=== PATIENT | male | born 1995 | race Caucasian/White ===

== ENCOUNTER 2023-02-21 20:17 | Emergency (ER) | payer OTHER, SELFPAY ==
[2023-02-21 20:23] VITALS: BP 138/81; PULSE 92; RESP 18; TEMP 36.6; O2SAT 100; BMI 24.3
[2023-02-21] MEDS: TET,DIPH,PERTUSS(ACELL),VAC/PF 0.5 ML SYRINGE IM (20:28)
--- NOTE | 2023-02-21 20:30 | ED_ITS ---
HPI - Wound/Laceration General Chief Complaint: Wound/Laceration Stated Complaint: stepped on nail, lt foot Time Seen by Provider: 02/21/23 20:25 Source: patient Mode of arrival: Ambulatory History of Present Illness HPI narrative: 27-year-old male nonsmoker and occasional drinker without chronic medical problems presents for evaluation of a puncture wound on the bottom of his left foot. He was wearing boots and stepped on a nail and has a small puncture on the plantar surface of his left foot. His tetanus is not up-to-date. There is very minimal bleeding and no obvious foreign body. He is otherwise well and free of complaint. He is preparing to leave on a ship to go out to see tomorrow and thinks his next port to be [facility] Related Data Previous Rx's Medication Instructions Recorded ciprofloxacin HCl 500 mg tablet 500 mg PO BID #14 tabs 02/21/23 (Cipro) Allergies Allergy/AdvReac Type Severity Reaction Status Date / Time No Known Drug Allergies Allergy Verified 02/21/23 20:23 Review of Systems Review of Systems Narrative: GENERAL: Denies chills, fatigue, malaise, fever, sweats. HEENT: Denies sinus pain, ear pain, sore throat, difficulty swallowing, dizziness. RESPIRATORY: Denies dyspnea, cough, wheezing, hemoptysis, sputum. CARDIOVASCULAR: Denies chest pain, palpitations, orthopnea, edema, GASTROINTESTINAL: Denies nausea, vomiting, abdominal pain, diarrhea, constipation, melena. : Denies dysuria, frequency, incontinence, hematuria, urinary retention. MUSCULOSKELETAL: See HPI SKIN: Denies rash, skin lesions, or other NEUROLOGIC: Denies weakness, headache, numbness, change in speech, confusion, s eizures, incoordination. PSYCHIATRIC: No concerning psychosocial issues. 12 point review of systems is negative except for those stated above Patient History Social History Smoking Status: Never smoker Smoking Status: Never smoker alcohol intake frequency: holidays/special occasions only Substance Use Type: does not use Exam Narrative Exam Narrative: GEN: AOx3 and in mild distress EYES: Pupils are equal, round, and reactive to light and accommodation. Extraoccular muscles are intact bilaterally. There is no subconjunctival hemorrhage or exudate. CHEST: Lungs are clear to auscultation bilaterally and free of wheezes, rales, or rhonchi. Heart rate is regular rhythm, there are no murmurs, clicks, rubs, or gallops. There is no chest wall tenderness. ABD: Abdomen is soft and nontender. There is no guarding or rebound. Bowel sounds are normal in all 4 quadrants. There is no mass or organomegaly. EXT: Small puncture noted on the plantar surface of left foot near the 5th metatarsophalangeal joint, no active bleeding, no evidence of foreign body, full painless range of motion. Full painless ROM of all extremities with no loss of sensation or strength. SKIN: Warm, pink, and dry. No erythema or rash Initial Vital Signs Initial Vital Signs: Vital Signs Temperature 98 F 02/21/23 20:23 Pulse Rate 92 H 02/21/23 20:23 Respiratory Rate 18 02/21/23 20:23 Blood Pressure 138/81 02/21/23 20:23 Pulse Oximetry 100 02/21/23 20:23 Oxygen Delivery Method Room Air 02/21/23 20:23 Course Orders Ordered: ED Orders 02/21/23 20:31 XR foot LT min 3V Stat Discontinued Medications Diphtheria/Tetanus/Acell Pertussis (Tet,Diph,Pertuss(Acell),Vac/Pf 0.5 Ml Syringe) 0.5 ml IM .ONCE ONE Stop: 02/21/23 20:26 Last Admin: 02/21/23 20:28 Dose: 0.5 ml Documented By: FELICITAS Vital Signs Vital signs: Vital Signs - 8 hr 02/21/23 21:45 Temperature 97.8 F Pulse Rate 89 Respiratory Rate 18 Blood Pressure 130/72 Pulse Oximetry 96 Oxygen Delivery Method Room Air MDM - Wound/Laceration MDM Narrative Medical decision making narrative: [27] year old patient presents with puncture wound on bottom of left foot Multiple etiologies for patient's symptoms considered including, but not limited to: [Puncture versus foreign body versus other] Primary Historian: patient Imaging reviewed: No bony abnormality or obvious foreign body Patient has reassuring history and physical exam with a small puncture noted on the base of his left foot, minimal bleeding, no particular obvious foreign body, it is cleaned and wrapped, tetanus is updated and he is given prescription for antibiotic. Findings and discharge diagnosis discussed with patient/family followed by verbalization of understanding Return precautions discussed with patient/family whom verbalize understanding of diagnosis and plan Discharge Plan Departure Patient Disposition: Home Clinical Impression: Puncture wound of foot Instructions: DI for Puncture Wound Activity Restrictions/Additional Instructions: *You have been diagnosed with [left foot puncture wound. As we discussed your history and physical exam are reassuring, x-ray shows no obvious abnormality. Your tetanus has been updated] *What to do: *Please continue to take your regular medications as directed. [ ] New medication prescriptions sent to your pharmacy: [ ] [ x] New medication written as a paper prescription [ ] No new medications given *Please follow up with your primary care provider in 2-3 days, call for an appointment. Let them know you were seen in the Emergency Department and that we ask that you be seen in follow up. We will electronically transmit a record of today's note if your PCP is in our system *If you do not have a primary care provider please contact the [facility] Resource line at [phone]. They will ask some questions about your medical history and help get you set up with a doctor in the community. *Return to Emergency Department if you should have any new, worsening or concerning symptoms, such as [fever greater than 101 F, shaking chills, worsening pain, persistent vomiting or other bothersome symptoms] Radiographic study has been interpreted by an emergency physician. The official diagnosis by radiology will be performed within the next 24 hours and should there be any change in outcome we will notify you of how to proceed. Prescriptions: New ciprofloxacin HCl [Cipro] 500 mg tablet 500 mg PO BID Qty: 14 0RF Stand Alone Forms: Patient Portal/API
--- NOTE | 2023-02-21 20:31 | DI.RAD.S_ITS ---
PROCEDURE: XR FOOT LT MIN 3V INDICATIONS: puncture, possible FB TECHNIQUE: 3 views of the foot were acquired. COMPARISON: None. FINDINGS: Bones: No fractures or dislocations. No suspicious bony lesions. Soft tissues: No radiopaque foreign bodies. IMPRESSION: 1. No fracture or radiopaque foreign bodies. Dictated by: Mitchell Suarez M.D. on 02/21/2023 at 22:53 Approved by: Mitchell Suarez M.D. on 02/21/2023 at 22:54
[2023-02-21 21:45] VITALS: BP 130/72; PULSE 89; RESP 18; TEMP 36.6; O2SAT 96
== END 2023-02-21 22:10 | disposition home or self-care (01) ==
LOC: ED 20:35
PROVIDERS: Emergency Provider Emergency Medicine
DX: S91.332A Puncture wound without foreign body, left foot, initial encounter (principal); Y99.0 Civilian activity done for income or pay; W45.0XXA Nail entering through skin, initial encounter; Z23 Encounter for immunization
CPT/HCPCS: 73630; 90471; 99283; 90715